=== PATIENT | female | born 1960 | race African-American/Black ===

== ENCOUNTER 2016-09-17 08:15 | Emergency (ER) | payer OTHER ==
[2016-09-17 08:19] VITALS: BP 129/84; PULSE 81; TEMP 97.9; BMI 24.9
--- NOTE | 2016-09-17 08:57 | PDOC ---
History of Present Illness - General Chief Complaint: Sore Throat Stated Complaint: SORE THROAT, EAR PAIN Time Seen by Provider: 09/17/16 08:38 History Source: Patient Exam Limitations: No Limitations - History of Present Illness Initial Comments: 09/17/16 08:52 Patient came to emergency department for evaluation of runny nose, sinus headache frontal, and sore throat pain worse in the morning when she wakes up. Patient denies fever, denies exudate, states onset of sore throat pain came after a late night with smoking Wednesday night. Has used some [id number] medications with moderate resolved. Timing/Duration: unsure Modifying Factors: improves with: cold therapy, medication Associated Symptoms: reports: cough, headaches, malaise. denies: fever/chills Past History - Travel Traveled outside of the country in the last 30 days: No Close contact w/someone who was outside of country & ill: No - Past Medical History Allergies/Adverse Reactions: Allergies Allergy/AdvReac Type Severity Reaction Status Date / Time No Known Allergies Allergy Verified 09/04/13 11:21 Home Medications: Ambulatory Orders Aspirin 81 mg PO DAILY 09/04/13 Clopidogrel Bisulfate [Plavix -] 75 mg PO DAILY 09/04/13 Oseltamivir Phosphate [Tamiflu] 75 mg PO BID #10 capsule 09/04/13 Promethazine/Phenyleph/Codeine [Promethazine Vc-Codeine Syrup] 5 ml PO Q6H PRN # 60 syrup 09/04/13 Cetirizine HCl/Pseudoephedrine [Allergy+Congestion Relf-D Tab] 1 each PO DAILY # 30 tab 09/17/16 CVA: Yes HTN: Yes Hypercholesterolemia: Yes - Psycho/Social/Smoking Cessation Hx Anxiety: No Suicidal Ideation: No Smoking History: Current some day smoker Number of Cigarettes Smoked Daily: 3 Information on smoking cessation initiated: Yes 'Breaking Loose' booklet given: 09/17/16 Hx Alcohol Use: No Drug/Substance Use Hx: No Substance Use Type: None Review of Systems - Review of Systems Able to Perform ROS?: Yes Is the patient limited Korean proficient: Yes Constitutional: Yes: Symptoms Reported, See HPI, Malaise HEENTM: Yes: See HPI, Nose Congestion. No: Symptoms Reported Respiratory: Yes: See HPI, Shortness of Breath. No: Symptoms reported, Cough, Wheezing ABD/GI: No: Symptoms Reported All Other Systems: Reviewed and Negative *Physical Exam - Vital Signs Last Vital Signs Temp Pulse Resp BP Pulse Ox 97.9 F 81 18 129/84 100 09/17/16 08:17 09/17/16 08:17 09/17/16 08:17 09/17/16 08:09/17/16 08:17 - Physical Exam General Appearance: Yes: Nourished, Appropriately Dressed, Apparent Distress HEENT: positive: ZANE, Normal ENT Inspection, TMs Normal (ingested but landmarks easily visualized), Pharynx Normal, Tonsillar Erythema (but no redness , swelling or exudate. Has posterior sinus drainage that's clear), Rhinorrhea ( clear) Neck: positive: Supple. negative: Tender Respiratory/Chest: positive: Lungs Clear, Normal Breath Sounds. negative: Wheezing Cardiovascular: positive: Regular Rhythm Musculoskeletal: positive: Normal Inspection Extremity: positive: Normal Capillary Refill, Normal Inspection, Normal Range of Motion Integumentary: positive: Normal Color, Dry, Warm Neurologic: positive: business improvement manager II-XII NML intact, Fully Oriented, Alert, Normal Mood/ Affect, Normal Response, Motor Strength 5/5 *DC/Admit/Observation/Transfer Diagnosis at time of Disposition: Allergic rhinitis Qualifiers: Allergic rhinitis trigger: other Allergic rhinitis seasonality: unspecified seasonality Qualified Code(s): J30.89 - Other allergic rhinitis - Discharge Dispostion Disposition: HOME Condition at time of disposition: Stable Admit: No - Patient Instructions Printed Discharge Instructions: DI for Allergic Rhinitis Additional Instructions: Rest, drink lots of fluids: Teas, water, soups Saltwater gargles. Consider humidifier in room at night Steamy showers/seem to face break up mucus Avoid contact with allergens, exposure to pollens, close windows on a windy day Lots of handwashing and good hygiene Continue [id number] medications for symptomatic relief- may use allergic eyedrops for itching I Continue antihistamines daily until pollen season is over; Zyrtec, Claritin, [place] during the daytime and Benadryl at nighttime as will make sleepy Tylenol or Motrin for fever and pain Followup with private physician in one to 2 days as needed Consider following up with an scientific systems analyst/aquatic performer for skin testing and possible allergy shots Return to emergency department for worsened symptoms, fevers, dehydration - Post Discharge Activity Work/School Note: Back to Work
== END 2016-09-17 09:17 | disposition home or self-care (01) ==
LOC: JERFT 08:15
DX: J30.89 Other allergic rhinitis (principal); I10 Essential (primary) hypertension; E78.00 Pure hypercholesterolemia, unspecified; Z86.73 Personal history of transient ischemic attack (TIA), and cerebral infarction without residual deficits
CPT/HCPCS: 99281-25